=== PATIENT | male | born 1985 | race Caucasian/White ===

== ENCOUNTER 2020-12-03 14:22 | Emergency (ER) | payer SELFPAY ==
[~2020-12-03] VITALS: Ht 188 cm; Wt 86.4 kg
[2020-12-03 14:26] VITALS: Ht 188 cm; Wt 86.4 kg
[2020-12-03] MEDS ORDERED: TORADOL10 MG PO (15:25)
[2020-12-03 17:30] VITALS: BP 120/89
== END 2020-12-03 17:25 | disposition home or self-care (01) ==
LOC: D.ER 14:22
DX: S93.401A Sprain of unspecified ligament of right ankle, initial encounter (principal); T14.8XXA Other injury of unspecified body region, initial encounter; S90.01XA Contusion of right ankle, initial encounter; V29.9XXA Motorcycle rider (driver) (passenger) injured in unspecified traffic accident, initial encounter; Y93.9 Activity, unspecified; Y92.9 Unspecified place or not applicable